=== PATIENT | male | born 1955 | race Caucasian/White ===

== ENCOUNTER → 2017-12-06 | Outpatient (CLI) | payer OTHER ==
[~2017-12-06] MED LIST: ADULT LOW DOSE81 MG PO; BRILINTA90 MG PO; CLARITIN10 MG PO; DIOVAN320 MG PO; EXFORGE; LIPITOR20 MG PO; LOPRESSOR 50 MG50 M1 PO; TRILIPIX45 MG PO
[2017-12-06 17:13] LABS: ALBUMIN 4.2 g/dL (3.4-5.0); ALKALINE PHOSPHATASE 65 U/L (46-116); CHOLESTEROL 170 mg/dL (<200); DIRECT BILIRUBIN 0.3 mg/dL (<0.1-0.3); HDL CHOLESTEROL 51 mg/dL (>40); LDL CHOLESTEROL 95 mg/dL (<100); SERUM ASSESSMENT CLEAR; SGOT 22 U/L (15-37); SGPT 47 U/L (30-65); TC:HDL 3.3 Ratio (Not establshd); TOTAL BILIRUBIN 1.5 mg/dL (<0.1-1.0); TOTAL PROTEIN 6.8 g/dL (6.4-8.2); TRIGLYCERIDE 122 mg/dL (<150); VLDL 24 mg/dL (<40)
== END ==
LOC: M.LAB 16:04
PROVIDERS: Internal Medicine
DX: E78.2 Mixed hyperlipidemia (principal)

== ENCOUNTER → 2020-07-19 | Outpatient (CLI) | payer BC ==
[2020-07-19 09:23] LABS: ABSOLUTE BASOPHILS 0.1 thou/uL (0.0-0.2); ABSOLUTE EOSINOPHILS 0.1 thou/uL (0.0-0.7); ABSOLUTE LYMPHOCYTES 1.5 thou/uL (0.8-5.3); ABSOLUTE MONOCYTES 0.5 thou/uL (0.0-1.2); ABSOLUTE NEUTROPHILS 4.1 thou/uL (1.6-8.1); BASOPHILS 1.1 %; EOSINOPHILS 1.8 %; HEMATOCRIT 42.2 % (42.0-52.0); HEMOGLOBIN 14.7 gm/dL (14.0-18.0); LYMPHOCYTES 23.4 %; MCHC 34.9 g/dL (28.0-37.0); MONOCYTES 8.4 %; MPV 7.6 fl. (7.2-11.1); NUCLEATED RBCS 0 /100WBC; PLATELET COUNT* 206 thou/uL (150-400); POLYS 65.3 %; RBC 4.75 mil/uL (4.50-6.00); RDW-CV 13.4 % (10.5-14.5); WBC 6.3 thou/uL (4.0-11.0)
[2020-07-19 09:35] LABS: ALBUMIN 3.7 g/dL (3.4-5.0); CALCIUM 8.4 mg/dL (8.5-10.1); CREATININE 0.9 mg/dL (0.6-1.3); POTASSIUM 4.6 mmol/L (3.5-5.1); TOTAL BILIRUBIN 1.1 mg/dL (<0.1-1.0); TOTAL PROTEIN 6.6 g/dL (6.4-8.2)
== END ==
LOC: M.ULTRA 08:18 → M.LAB 08:18 → M.ULTRA 08:30
PROVIDERS: ATTEND Internal Medicine Gastroenterology
DX: N28.1 Cyst of kidney, acquired (principal); K76.0 Fatty (change of) liver, not elsewhere classified; R10.13 Epigastric pain; R16.1 Splenomegaly, not elsewhere classified